=== PATIENT | female | born 1990 | race Caucasian/White ===

== ENCOUNTER → 2024-05-31 11:55 | Outpatient (CLI) | payer OTHER, SELFPAY ==
[2024-05-31 13:11] LABS: Add Manual Diff / Slide Review NO; Basophils Absolute Auto 100 /uL (0-100); Basophils Percent Auto 0.6 % (0-2); Eosinophils Absolute Auto 300 /uL (0-450); Eosinophils Percent Auto 3.8 % (2-4); Hematocrit 39.8 % (36-46); Hemoglobin 13.3 g/dL (12.0-16.0); Lymphocytes Absolute Auto 2200 /uL (1100-4500); Lymphocytes Percent Auto 24.4 % (25-40); Mean Corpuscular HGB Conc 33.5 % (30-36); Mean Corpuscular Hemoglobin 29.5 PG (26-34); Mean Corpuscular Volume 88.2 fL (80-100); Monocytes Absolute Auto 500 /uL (0-900); Monocytes Percent Auto 6.1 % (3-14); Neutrophils Absolute Auto 5800 /uL (1500-7000); Neutrophils Percent Auto 65.1 % (50-75); Platelet Count 295 X10^3/uL (150-400); Red Blood Cell Count 4.51 X10^6/uL (4.0-5.2); Red Cell Distribution Width 13.5 % (11.6-14.8); White Blood Cell Count 8.9 X10^3/uL (4.5-11.0)
[2024-05-31 17:15] LABS: Appearance Urine UA CLEAR; Bilirubin Urine UA NEGATIVE (NEGATIVE); Color Urine UA YELLOW; Glucose Urine UA 3+ g/dL (Negative); Ketones Urine UA NEGATIVE (NEGATIVE); Leukocyte Esterase Urine UA NEGATIVE (NEGATIVE); Nitrite Urine UA NEGATIVE (Negative); Occult Blood Urine UA NEGATIVE (Negative); Protein Urine UA NEGATIVE (Negative); Urobilinogen Urine UA 0.2 E.U./dL (0.2)
[2024-06-02 05:13] LABS: RPR Screen Non Reactive (Non Reactive)
[2024-06-02 13:39] LABS: Varicella IgG Antibody Reactive (Non Reactive)
[2024-06-02 15:34] LABS: Hepatitis B Surface Antigen NEGATIVE s/c (NEGATIVE); Rubella Antibody IgG 11.2 IU/mL (>15)
[2024-06-02 15:49] LABS: HIV 1 & 2 Ab/Ag 4th Gen Combo NEGATIVE (NEGATIVE); Hep C Virus Ab w/Reflex Quant NEGATIVE s/c (NEGATIVE)
[2024-06-02 16:37] LABS: Hemoglobin A1C% w Est Avg Glu 4.9 % (4.0-6.0)
== END ==
PROVIDERS: Referring Provider Student in an Organized Health Care Education/Training Program; Visit Provider Student in an Organized Health Care Education/Training Program
DX: Z34.80 Encounter for supervision of other normal pregnancy, unspecified trimester (principal)
CPT/HCPCS: 80055; 81003; 83036; 86787; 86803; 86850; 86900; 86901; 87086; 87389

== ENCOUNTER → 2024-09-20 10:57 | Outpatient (CLI) | payer OTHER, SELFPAY | PROVIDERS: Visit Provider Student in an Organized Health Care Education/Training Program | DX: N89.8 Other specified noninflammatory disorders of vagina (principal) | CPT/HCPCS: 87210 ==

== ENCOUNTER → 2024-09-20 11:22 | Outpatient (CLI) | payer OTHER, SELFPAY ==
[2024-09-20 12:41] LABS: Hematocrit 37.4 % (36-46); Hemoglobin 12.9 g/dL (12.0-16.0)
[2024-09-20 13:12] LABS: GTT (PREG) 1 Hour PP 50gm Dose 119 mg/dL (76-139)
== END ==
PROVIDERS: PCP Student in an Organized Health Care Education/Training Program; Referring Provider Student in an Organized Health Care Education/Training Program; Visit Provider Student in an Organized Health Care Education/Training Program
DX: O99.891 Other specified diseases and conditions complicating pregnancy (principal); N89.8 Other specified noninflammatory disorders of vagina; Z3A.24 24 weeks gestation of pregnancy
CPT/HCPCS: 36415; 82950; 85014; 85018; 87210

== ENCOUNTER → 2024-11-08 08:31 | Outpatient (CLI) | payer OTHER, SELFPAY ==
--- NOTE | 2024-11-08 08:33 | DI.US.S_ITS ---
PROCEDURE: US OB LIMITED INDICATIONS: Growth Scan for Advanced Materal Age OUTSIDE/PRIOR DATING DATA: Provided working FIDELIA 12/30/2024 TECHNIQUE: Real-time scanning was performed of the fetus, with image documentation and biometric measurements. COMPARISON: None. FINDINGS: General: A single living intrauterine gestation is present. Presentation: Vertex. Placenta: Placental position is anterior , without previa. Amniotic fluid index: 17.6 cm, normal range is 5-24 cm. Single deepest vertical pocket is 7.2 cm. heart rate: 155 beats per minute. Maternal cervical canal: 5.2 cm long. Normal lower limit is 2.5 cm. biometrics: Biparietal diameter: 8.5 cm, 34 weeks and 3 days Head circumference: 31.2 cm, 35 weeks Abdominal circumference: 31.6 cm, 35 weeks and 3 days Femur length: 6.4 cm, 32 weeks and 6 days Clinically estimated gestational age: 32 weeks and 4 days Composite gestational age from present scan: 34 weeks and 3 days Estimated weight and percentile: 2472 g, 94% Other: Not applicable. IMPRESSION: Using the provided working FIDELIA, the EFW is at the 94 percentile, larger than expected. Consider continued follow-up for growth. QUENTIN within normal limits. Vertex presentation. Dictated by: Nicholas Rust M.D. on 11/08/2024 at 15:42 Approved by: Nicholas Rust M.D. on 11/08/2024 at 15:44
== END ==
PROVIDERS: PCP Student in an Organized Health Care Education/Training Program; Referring Provider Student in an Organized Health Care Education/Training Program; Visit Provider Student in an Organized Health Care Education/Training Program
DX: O09.529 Supervision of elderly multigravida, unspecified trimester (principal); O36.63X0 Maternal care for excessive fetal growth, third trimester, not applicable or unspecified; Z3A.32 32 weeks gestation of pregnancy
CPT/HCPCS: 76815

== ENCOUNTER → 2024-11-29 10:57 | Outpatient (CLI) | payer OTHER, SELFPAY ==
[2024-11-30 10:19] LABS: Strep Grp B PCR NEG for Grp B Strep
== END ==
PROVIDERS: Visit Provider Family Medicine
DX: Z34.80 Encounter for supervision of other normal pregnancy, unspecified trimester (principal); N76.0 Acute vaginitis; B96.89 Other specified bacterial agents as the cause of diseases classified elsewhere
CPT/HCPCS: 87210; 87653

== ENCOUNTER → 2024-12-06 09:43 | Outpatient (CLI) | payer OTHER, SELFPAY ==
--- NOTE | 2024-12-06 09:46 | DI.US.S_ITS ---
PROCEDURE: US OB LIMITED INDICATIONS: LGA The calculations are made using the working FIDELIA of 12/30/2024. TECHNIQUE: Real-time scanning was performed of the fetus, with image documentation and biometric measurements. Endovaginal scanning: No COMPARISON: formerly [facility], OB LIMITED, 11/08/2024, 8:52. FINDINGS: General: A single living intrauterine gestation is present. Presentation: Vertex. Placenta: Placental position is anterior , without previa. Amniotic fluid index: 18.1 cm, normal range is 5-24 cm. Single deepest vertical pocket is 5.9 cm. heart rate: 150 beats per minute. Maternal cervical canal: Nonvisualized biometrics: Biparietal diameter: 9.2 cm, 37 week 2 day Head circumference: 33.8 cm, 38 week 6 day Abdominal circumference: 34.1 cm, 38 week 0 day Femur length: 7.5 cm, 38 week 4 day Clinically estimated gestational age: 36 week 4 day Composite gestational age from present scan: 38 week 1 day Estimated weight and percentile: 3411 g, 90 percentile Other: Not applicable. IMPRESSION: Single live intrauterine consistent with 38 week 1 day gestation. EGA 3411 g, 90 percentile Approved by: Jose Valenzuela M.D. on 12/06/2024 at 17:28
== END ==
LOC: US 09:45
PROVIDERS: Referring Provider Student in an Organized Health Care Education/Training Program; Visit Provider Student in an Organized Health Care Education/Training Program
DX: O36.63X0 Maternal care for excessive fetal growth, third trimester, not applicable or unspecified (principal); Z3A.38 38 weeks gestation of pregnancy
CPT/HCPCS: 76815

== ENCOUNTER 2024-12-06 11:37 | Outpatient (CLI) | payer OTHER, SELFPAY ==
--- NOTE | 2024-12-06 12:29 | PM.OBTRLD ---
Visit Information Visit Information Date of evaluation: 12/06/24 Primary OB Provider: Colette Early Reason for Evaluation: Yes non-stress test non-stress test reason: other (AMA) [facility] Medical History (Updated 09/20/24 @ 12:47 by Colette Early MD) Post term Foot fracture Surgical History (Updated 05/03/24 @ 10:05 by Suzy Mtz, RN) [place] teeth extracted Family History (Updated 05/03/24 @ 10:37 by Suzy Mtz, RN) Mother Diabetes mellitus Hyperlipidemia Aunt Diabetes mellitus Grandmother Cancer Grandmother Lyme disease Father Hyperlipidemia Uncle Congenital heart defect Aunt Congenital blindness Developmental disability Family/Other Autism Family/Other Brain cancer Family/Other Congenital deafness Cochlear implant in place Social History marital status: number of children: 3 household members: spouse and children lives independently: Yes caregiver/support person: Yes housing: house pets and animals: No education level: college (bachelor's degree) occupational status: unemployed current occupational exposures/hazards: No special nilson needs: No travel history: recent (domestic only) seatbelt use: always water heater temp set < 120 deg: Yes working smoke detector in home: Yes fire extinguisher in home: No carbon monox detector in home: Yes firearms in home: Yes firearms unloaded and locked: Yes do you feel safe at home: Yes second hand exposure: No alcohol intake: never substance use type: does not use during the past year weight has: decreased > 10 lbs (intentional) well-balanced diet: daily or most days daily servings fruits/ve or more times/day caffeine: Yes (occasional soft drink) Type(s) of exercise: walking and resistance training frequency: 3-4 times per week duration: 15-30 minutes/day Evaluation Evaluation Baseline heart rate: 145 Variability: Moderate (6-25) monitor accelerations: Present Monitor Decelerations: Absent Diagnosis, Plan/Disposition Plan/Disposition Plan: 34yo at 36w4d here for NST for AMA. NST reactive. OB Disposition: home
== END 2024-12-06 12:43 | disposition home or self-care (01) ==
LOC: LABOR 11:46 → OB 14:58
PROVIDERS: Referring Provider Student in an Organized Health Care Education/Training Program; Visit Provider Student in an Organized Health Care Education/Training Program
DX: O36.63X0 Maternal care for excessive fetal growth, third trimester, not applicable or unspecified (principal); O09.529 Supervision of elderly multigravida, unspecified trimester; Z3A.38 38 weeks gestation of pregnancy
CPT/HCPCS: 59025; 76815; G0378; G0379

== ENCOUNTER 2024-12-13 11:51 | Outpatient (CLI) | payer OTHER, SELFPAY | END 2024-12-13 12:25 | disposition home or self-care (01) | LOC: OB 12-14 10:48 | PROVIDERS: Referring Provider Student in an Organized Health Care Education/Training Program; Visit Provider Student in an Organized Health Care Education/Training Program | DX: O09.523 Supervision of elderly multigravida, third trimester (principal); Z3A.37 37 weeks gestation of pregnancy | CPT/HCPCS: 59025; G0378; G0379 ==

== ENCOUNTER 2024-12-20 11:18 | Outpatient (CLI) | payer OTHER, SELFPAY ==
--- NOTE | 2024-12-20 11:49 | P.TNLD_ITS ---
Visit Information Visit Information Date of evaluation: 12/20/24 Primary OB Provider: Colette Early Reason for Evaluation: Yes non-stress test Comments/Additional reasons for admission: AMA NST [facility] Medical History (Updated 09/20/24 @ 12:47 by Colette Early MD) Post term Foot fracture Surgical History (Updated 05/03/24 @ 10:05 by Suzy Mtz, RN) [place] teeth extracted Family History (Updated 05/03/24 @ 10:37 by Suzy Mtz, RN) Mother Diabetes mellitus Hyperlipidemia Aunt Diabetes mellitus Grandmother Cancer Grandmother Lyme disease Father Hyperlipidemia Uncle Congenital heart defect Aunt Congenital blindness Developmental disability Family/Other Autism Family/Other Brain cancer Family/Other Congenital deafness Cochlear implant in place Social History marital status: number of children: 3 household members: spouse and children lives independently: Yes caregiver/support person: Yes housing: house pets and animals: No education level: college (bachelor's degree) occupational status: unemployed current occupational exposures/hazards: No special nilson needs: No travel history: recent (domestic only) seatbelt use: always water heater temp set < 120 deg: Yes working smoke detector in home: Yes fire extinguisher in home: No carbon monox detector in home: Yes firearms in home: Yes firearms unloaded and locked: Yes do you feel safe at home: Yes second hand exposure: No alcohol intake: never substance use type: does not use during the past year weight has: decreased > 10 lbs (intentional) well-balanced diet: daily or most days daily servings fruits/ve or more times/day caffeine: Yes (occasional soft drink) Type(s) of exercise: walking and resistance training frequency: 3-4 times per week duration: 15-30 minutes/day Evaluation Evaluation Baseline heart rate: 145 Variability: Moderate (6-25) monitor accelerations: Present Monitor Decelerations: Absent Category of Tracing: Reactive Status: Category l Diagnosis, Plan/Disposition Plan/Disposition Plan: 34 yo at 38w4d here for NST for AMA. Reactive. IOL Saturday 12/23. OB Disposition: home
== END 2024-12-20 11:55 | disposition home or self-care (01) ==
LOC: LABOR 11:36 → OB 12-21 17:28
PROVIDERS: PCP Student in an Organized Health Care Education/Training Program; Referring Provider Student in an Organized Health Care Education/Training Program; Visit Provider Student in an Organized Health Care Education/Training Program
DX: O09.523 Supervision of elderly multigravida, third trimester (principal); Z3A.38 38 weeks gestation of pregnancy
CPT/HCPCS: 59025; G0378; G0379

== ENCOUNTER 2024-12-23 07:24 | Inpatient (IN) | payer OTHER, SELFPAY ==
--- NOTE | 2024-12-23 08:50 | PM.OBHP.IH.1 ---
OB HPI Date/Time Date of admission: 12/23/24 Date Patient Seen: 12/23/24 History of Present Condition Chief complaint: INDUCING FIDELIA Calculator Estimated Delivery Date Method Current WG Current Estimate 12/30/24 LMP (Certain) 39w 0d Other Estimates 01/02/25 Ultrasound #1 38w 4d : 4 Para: 3 Narrative: This is a 34 yo at 39w0d here for IOL for AMA. complicated by depression well controlled on sertraline. Some bloody show this AM, mild cramping overnight. Good movement. care: good care Dating criteria OB: LMP confirmed by 1st trimester US Ultrasounds: normal 1st trimester US and normal mid trimester US Obstetrical complications: none Medical complications OB: none Indications Indication for induction OB: other (AMA) Preadmission Labs Last OB Lab Results: Blood Type O Positive 05/31/24, 12:34 Antibody Screen Negative 05/31/24, 12:34 Hct, (36-46) 37.4 % 09/20/24, 12:34 Hgb, (12.0-16.0) 12.9 g/dL 09/20/24, 12:34 Hep Bs Antigen, (NEGATIVE) Negative s/c 05/31/24, 12:34 Hepatitis C Antibody, (NEGATIVE) Negative s/c 05/31/24, 12:34 Rubella Antibody, (>15) 11.2 IU/mL L 05/31/24, 12:34 VZV IgG Antibody, (Non Reactive) Reactive 05/31/24, 12:34 Glucose 1 Hr 50 gm, (76-139) 119 mg/dL 09/20/24, 12:34 Hemoglobin A1c, (4.0-6.0) 4.9 % 06/02/24, 16:19 Group B Strep (PCR) Neg for grp b strep 11/29/24, 10:57 Glucose Tolerance Testin hr Prior (ies) Past Pregnancies Del. Date GA/Weeks Labor Lgth Wt Sex Route Outcome Anesthesia Place Delv Breastfeed Preg Comp Name 10/04/16 42+ 48 9 lb 6 oz Male vaginal live - full term epidural Alex Carranza 5 months (mostly pumping) macrosomia post-dates induction shoulder dystocia hemorrhage Jaxcen 04/08/19 39 16 8 lb 14 oz Male vaginal live - full term epidural [facility] 11 months macrosomia Wilbur 10/28/21 39 8 9 lb 2 oz Male vaginal live - full term epidural [facility] 10-11 months macrosomia Stef Delivery Date: 10/04/16 Last Updated by: Suzy Mtz RN placenta deteriorated, manual extraction in several pieces Delivery Date: 04/08/19 Last Updated by: Suzy Mtz RN rapid 2nd stage Delivery Date: 10/28/21 Last Updated by: Suzy Mtz RN rapid 2nd stage, facial bruising, needed readmission for jaundice Evaluation Evaluation Baseline heart rate: 145 Variability: Moderate (6-25) monitor accelerations: Present Monitor Decelerations: Absent Category of Tracing: Reactive Status: Category l Dilation (cm): 2 Effacement (%): 50 Dilation: 1-2 cm Effacement: 40-50% station: -3 Position of cervix: posterior Consistency: soft Santamaria score: 4 PFSH Medical History (Updated 09/20/24 @ 12:47 by Colette Early MD) Post term Foot fracture Surgical History (Updated 05/03/24 @ 10:05 by Suzy Mtz RN) [place] teeth extracted Family History (Updated 05/03/24 @ 10:37 by Suzy Mtz RN) Mother Diabetes mellitus Hyperlipidemia Aunt Diabetes mellitus Grandmother Cancer Grandmother Lyme disease Father Hyperlipidemia Uncle Congenital heart defect Aunt Congenital blindness Developmental disability Family/Other Autism Family/Other Brain cancer Family/Other Congenital deafness Cochlear implant in place Social History marital status: number of children: 3 household members: spouse and children lives independently: Yes caregiver/support person: Yes housing: house pets and animals: No education level: college (bachelor's degree) occupational status: unemployed current occupational exposures/hazards: No special nilson needs: No travel history: recent (domestic only) seatbelt use: always water heater temp set < 120 deg: Yes working smoke detector in home: Yes fire extinguisher in home: No carbon monox detector in home: Yes firearms in home: Yes firearms unloaded and locked: Yes do you feel safe at home: Yes second hand exposure: No alcohol intake: never substance use type: does not use during the past year weight has: decreased > 10 lbs (intentional) well-balanced diet: daily or most days daily servings fruits/ve or more times/day caffeine: Yes (occasional soft drink) Type(s) of exercise: walking and resistance training frequency: 3-4 times per week duration: 15-30 minutes/day Meds Home Medications and Allergies Home Medications ?Medication ?Instructions ?Recorded ?Confirmed ?Type cetirizine 10 mg tablet (All Day 10 mg PO DAILY PRN 05/03/24 12/20/24 History Allergy (cetirizine)) sertraline 200 mg capsule 200 mg PO DAILY #90 caps 10/03/24 12/20/24 Rx buspirone 5 mg tablet 5 mg PO TID 10/11/24 12/20/24 History ondansetron 4 mg disintegrating 4 mg PO Q8H PRN nausea and 10/11/24 12/20/24 Rx tablet vomiting #30 tabs vitamin-ferrous sulfate tab PO .QD 10/11/24 12/20/24 History 27 mg iron-folic acid 0.8 mg tablet Allergies Allergy/AdvReac Type Severity Reaction Status Date / Time No Known Drug Allergies Allergy Verified 12/20/24 10:46 Assessment and Plan Assessment and Plan Assessment and Plan narrative: 34 yo at 39w0d here for IOL for AMA. 50/-3. -will start pitocin -plan for epidural -anticipate SVE Time-Based Coding :: 30 minutes spent with patient and on the chart (including review of chart, obtaining history, exam, reviewing outside data, placing orders, documenting exam and treatment plan, and counseling patient) on 12/23/2024.
[2024-12-23] MEDS: LACTATED RINGERS 1,000 ML 100 ML IV (09:15)
[2024-12-23] MEDS: OXYTOCIN PREMIX 30 UNIT/500 ML PLAST..BAG IV (09:29)
[2024-12-23 09:32] LABS: Add Manual Diff / Slide Review NO; Hematocrit 35.1 % (36-46); Hemoglobin 12.1 g/dL (12.0-16.0); Lymphocytes Absolute Auto 1700 /uL (1100-4500); Mean Corpuscular HGB Conc 34.6 % (30-36); Mean Corpuscular Hemoglobin 28.3 PG (26-34); Mean Corpuscular Volume 82.0 fL (80-100); Platelet Count 284 X10^3/uL (150-400)
[2024-12-23 09:44] VITALS: BP 119/66
--- NOTE | 2024-12-23 13:21 | PM.OBPNLAB ---
Date/Time Date Patient Seen: 12/23/24 Pain Control Pain control: epidural Pelvic Exam Dilation (cm): 5.5 Effacement (%): 50 station: -3 Amniotic membrane status: Intact Contractions Contractions on admission: regular Monitor mode: External Pitocin rate (mU/min): 4 Contraction frequency (min): 4 Contraction pattern: Regular Contraction intensity: Strong/Firm Status status: Category l Heart Rate Baseline: 145 Monitor Accelerations: Present Monitor Decelerations: Absent Monitor Variability: Moderate Assessment and Plan Assessment: induction ongoing Plan: continuous present management
--- NOTE | 2024-12-23 14:17 | PM.AN.REGBLK ---
Regional Block Pre-procedure Procedure: Continuous Lumbar Epidural for L&D (with dural puncture) Attending OB provider: Colette Early PMH/ROS narrative: 34yo female in labor requesting epidural. See pre-anesthesia evaluation for further details. ASA Class: II Labs: Hct 35.1 % (36-46) L 12/23/24 09:01 Plt Count 284 X10^3/uL (150-400) 12/23/24 09:01 Medications: Current Medications Generic Name Dose Route Start Last Admin Trade Name Freq PRN Reason Stop Dose Admin Calcium Carbonate 1,000 mg 12/23/24 08:02 Calcium Carbonate 500 Mg Tab PO Q2HR PRN Dyspepsia Carboprost Tromethamine 250 mcg 12/23/24 08:02 Carboprost 250 Mcg/Ml Ampul IM Q90M PRN Bleeding Diphenhydramine HCl 25 mg 12/23/24 14:15 Diphenhydramine 50 Mg/Ml Vial IV Q10M PRN Pruritis Ephedrine Sulfate 10 mg 12/23/24 14:15 Ephedrine 50 Mg/Ml Vial IV Q5M PRN Blood pressure decrease more than 20% of baseline. Fentanyl 50 mcg 12/23/24 08:02 Fentanyl 100 Mcg/2 Ml Inj IV Q1H PRN Pain, Moderate (4-6) Oxytocin/Lactated Ringer's 30 unit in 500 mls @ 200 mls/hr 12/23/24 08:02 Oxytocin Premix IV CONT PRN Bleeding Protocol Tranexamic Acid 1,000 mg/ 100 mls @ 600 mls/hr 12/23/24 08:02 Sodium Chloride IV NOW PRN Bleeding Oxytocin/Lactated Ringer's 30 unit in 500 mls @ 2 mls/hr 12/23/24 08:15 12/23/24 09:29 Oxytocin Premix IV 2 milliunit/min TITRATE ANAM 2 mls/hr Protocol Administration 2 MILLIUNIT/MIN Lactated Ringer's 1,000 mls @ 100 mls/hr 12/23/24 08:15 12/23/24 09:15 Lactated Ringers IV 12/23/24 18:14 100 mls/hr CONT ANAM Administration FENT 2MCG/ML BUPIV 0.125% EPI 200 mcg in 100 mls @ 6 mls/hr 12/23/24 14:15 Fentanyl/Bupiv/Ns 2mcg/Ml - 0.125% EPIDURAL CONT ANAM Lidocaine HCl 20 ml 12/23/24 08:02 Lidocaine 1% 20 Ml INJ INTRA-OP PRN Post Delivery Methylergonovine Maleate 0.2 mg 12/23/24 08:02 Methylergonovine 0.2 Mg Tablet PO Q6HR PRN Heavy Bleeding Methylergonovine Maleate 0.2 mg 12/23/24 08:02 Methylergonovine 0.2 Mg/Ml Vial IM NOW PRN Bleeding Mineral Oil 30 ml 12/23/24 08:02 Mineral Oil 30 Ml Udc TOP PRN PRN Version Misoprostol 800 mcg 12/23/24 08:02 Misoprostol 200 Mcg Tablet AR NOW PRN Bleeding Misoprostol 400 mcg 12/23/24 08:02 Misoprostol 200 Mcg Tablet SL NOW PRN Bleeding Nalbuphine HCl 2.5 mg 12/23/24 14:15 Nalbuphine 20 Mg/Ml Ampul IV Q10M PRN Pruritis Naloxone HCl 0.2 mg 12/23/24 08:02 Naloxone 0.4 Mg/Ml Vial IV Q2MIN PRN Opiate Reversal Ondansetron HCl 4 mg 12/23/24 08:02 Ondansetron 4 Mg/2 Ml Inj IV Q4HR PRN Nausea And Vomiting Oxytocin 10 unit 12/23/24 08:02 Oxytocin 10 Unit/Ml Vial IM NOW PRN Bleeding Allergies: Allergies Allergy/AdvReac Type Severity Reaction Status Date / Time No Known Drug Allergies Allergy Verified 12/20/24 10:46 Procedure Insertion date: 12/23/24 Insertion time: 12:37 Prep/Local: 1% lidocaine (Chloraprep) Interspace: L3-4 Patient position: sitting Needle: 18 gauge Brissa (with 27g pencil point for dural puncture) Loss of resistance with: saline CARRILLO at (cm): 9 (8.5) Catheter placed at SKIN (cm): 14 Catheter in SPACE (cm): 6 Insertion: Yes Paresthesia with insertion Initial Medications TEST DOSE time: 12:37 TEST DOSE: 1.5% lidocaine with epinephrine 1:200k (mL): 3 BOLUS DOSE time: 12:38 BOLUS DOSE (mL): 2 BOLUS DOSE med: other (Same as test dose) Infusion INFUSION: 0.125% bupivacaine and with fentanyl 2 mcg/mL Initial rate (mL/hr): 8 Subsequent interventions: Epidural pump started at 12:55. Pt reports contraction pain 1-2/10, able to move BLE. Post-procedure Anesthesia date START: 12/23/24 Anesthesia time START: 12:22 Anesthesia date END: 12/23/24 Anesthesia time END: 16:56 Post-procedure Anesthesia Assessment: Yes CV function: HR/BP stable, Yes Resp function: RR/sat/airway adequate, Yes Post-op hydration adequate, Yes Pain control adequate, Yes Nausea & vomiting absent, Yes Temperature > 36 C, Yes Mental status appropriate and No Anesthesia complications
--- NOTE | 2024-12-23 17:36 | PM.OBPRVD ---
Events: Meconium Stained Fluid Labor & Delivery Delivery date: 12/23/24 Delivery Time: 16:56 Intrapartal Events: None Cervical ripening method: none Induction method: per pitocin protocol Delivery augmentation: rupture of membranes Delivery monitor: external FHT Route of delivery: L&D Laceration Description: None Estimated blood loss (mL): 500 Anesthesia Type: Epidural Narrative: The patient progressed to C/C/+2 with pitocin augmentation and epidural anesthesia. After approximately 1 sets of maternal pushing efforts, the delivered in OA position and restituted KISHORE. The anterior shoulder delivered with gentle downward pressure. The right hand was covering the right cheek. The posterior shoulder and rest of body delivered with ease. The cord was doubly clamped and cut after a 3 minute delay. The placenta delivered spontaneously and was intact with a 3-vessel cord. The fundus was noted to be firm with bimanual massage and pitocin. Rectal misoprostol 800 mcg was given for blood loss of 500 cc. There were no lacerations. Mom recovering well. Plan for aftercare: Routine care
[2024-12-23] MEDS: ACETAMINOPHEN 325 MG TABLET 650 MG PO (19:55)
[2024-12-23] MEDS: IBUPROFEN 600 MG TABLET PO (19:55)
[2024-12-23] MEDS: DERMOPLAST SPRAY 20% 60 ML 1 SPRAY TOP (19:57)
[2024-12-23] MEDS: OXYCODONE IR 5 MG TABLET PO (22:41)
[2024-12-24] MEDS: ACETAMINOPHEN 325 MG TABLET 650 MG PO ×3 (02:01→14:32)
[2024-12-24] MEDS: IBUPROFEN 600 MG TABLET PO ×3 (02:01→14:32)
[2024-12-24] MEDS: OXYCODONE IR 5 MG TABLET PO ×4 (05:28→18:19)
--- NOTE | 2024-12-24 08:19 | PM.OBDS.1 ---
Discharge Providers Provider Date of admission: 12/23/24 07:24 Discharge Date: 12/24/24 Primary care physician: Colette Early MD Consults: 12/23/24 08:03 Consult to Anesthesiology Urgent Comment: Consulting Provider: Anesthesiologist Reason for consultation: Epidural 12/23/24 18:27 Consult to Special Procedure Technologist Routine Comment: Discharge provider: Colette Early MD Summary Hospital Course Date Patient Seen: 12/24/24 Diagnoses: Term vaginal delivery Hospital Course: This is a 34 yo G4 now P4 who presented at 39w0d for IOL for AMA. She had an uncomplicated vaginal delivery following pitocin and AROM augmentation. She had epidural anesthesia. She recovered well . She is without difficulty. She is ambulating well. She has voided. Peripartum Data Laceration Description: None complications: none Status at Discharge Cognitive/behavioral status at discharge: oriented Functional status at discharge: independent ambulation Overall status at discharge: patient is back to baseline Time Spent with Patient Time attestation: Total time spent providing and/or coordinating discharge services: 30 minutes Objective Labs 12/23/24 09:01 Labs: Laboratory Results - last 24 hr 12/23/24 09:01 WBC 8.5 RBC 4.29 Hgb 12.1 Hct 35.1 L MCV 82.0 MCH 28.3 MCHC 34.6 RDW 13.5 Plt Count 284 Neut % (Auto) 70.2 Lymph % (Auto) 20.[address] [place] % (Auto) 6.9 Eos % (Auto) 2.3 Baso % (Auto) 0.4 Neut # (Auto) 6000 Lymph # (Auto) 1700 [place] # (Auto) 600 Eos # (Auto) 200 Baso # (Auto) 0 Blood Type O Positive Antibody Screen Negative Crossmatch See Detail Exam Narrative Exam Narrative: NAD, resting comfortably in bed Discharge Plan Discharge Plan Patient Disposition: Home Discharge orders & Medications Prescriptions: New oxycodone 5 mg Tablet 5 mg PO Q4HR PRN (Reason: Pain, Moderate (4-6)) Qty: 15 0RF docusate sodium [Colace] 100 mg capsule 100 mg PO BID Qty: 60 0RF docusate sodium [Colace] 100 mg capsule 100 mg PO BID Qty: 60 0RF Continued buspirone 5 mg tablet 5 mg PO TID Patient Comments: Taking QD-BID ondansetron 4 mg tablet,disintegrating 4 mg PO Q8H PRN (Reason: nausea and vomiting) Qty: 30 3RF sertraline 200 mg capsule 200 mg PO DAILY Qty: 90 0RF cetirizine [All Day Allergy (cetirizine)] 10 mg tablet 10 mg PO DAILY PRN vit-ferrous sulfat-FA 27 mg iron- 0.8 mg tablet PO .QD Follow up/Referrals: Colette Early MD [Primary Care Provider, [facility]] - 02/03/25 3:30 pm Referral Note: Please follow up w/ Dr. Early for your 6 week appointment on Monday February 03, 2025 @3:30pm. Please check in at 3:15pm! Visit Report/Discharge Packet Stand Alone Forms: Patient Portal/API, Stroke Signs & Symptoms Discharge Data Primary Care Provider: Colette Early Attending Provider: Colette Early Admit Date/Time: 12/23/24 07:24
[2024-12-24] MEDS: LANOLIN OINT 7 GM 1 APPLIC TOP (14:54)
[2024-12-24] MEDS: DERMOPLAST SPRAY 20% 60 ML 1 SPRAY TOP (14:55)
[2024-12-24] MEDS: MEASLES,MUMPS,RUBELLA VACC/PF 0.5 ML VIAL SUBCUT (15:09)
[2024-12-24 18:22] VITALS: BP 119/66; PULSE 68; RESP 16; TEMP 36.3
== END 2024-12-24 18:22 | disposition home or self-care (01) | DRG 807 ==
PROVIDERS: Admitting Provider Student in an Organized Health Care Education/Training Program; PCP Student in an Organized Health Care Education/Training Program; Referring Provider Student in an Organized Health Care Education/Training Program; Visit Provider Student in an Organized Health Care Education/Training Program
DX: O99.344 Other mental disorders complicating childbirth (principal); Z37.0 Single live birth; Z3A.39 39 weeks gestation of pregnancy; O76 Abnormality in fetal heart rate and rhythm complicating labor and delivery
CPT/HCPCS: 36415; 59050; 59400; 85025; 86850; 86900; 86901; G0378; G0379; J2590; S0191

== ENCOUNTER → 2025-02-17 09:17 | Outpatient (CLI) | payer OTHER, SELFPAY ==
--- NOTE | 2025-02-17 09:18 | DI.RAD.S_ITS ---
PROCEDURE: XR WRIST RT 2V INDICATIONS: Wrist pain TECHNIQUE: 4 views of the wrist were acquired. COMPARISON: None. FINDINGS: Bones: No fractures or dislocations. No suspicious bony lesions. Soft tissues: No suspicious soft tissue calcifications. IMPRESSION: No acute bony abnormality. Dictated by: Sai Trimble M.D. on 02/20/2025 at 6:24 Approved by: Sai Trimble M.D. on 02/20/2025 at 6:24
--- NOTE | 2025-02-17 09:18 | DI.RAD.S_ITS ---
PROCEDURE: XR LUMBAR SPINE 2-3V INDICATIONS: back pain TECHNIQUE: 3 views of the lumbar spine were acquired. COMPARISON: None. FINDINGS: Bones: 5 [id number] vertebrae are present. There is normal bony alignment. Moderate L5-S1 disc height loss with adjacent endplate sclerosis and minimal anterior osteophytosis. No vertebral body compression fractures. No suspicious bony lesions. Soft tissues: Overlying bowel gas pattern is normal. No suspicious soft tissue calcifications. IMPRESSION: Degenerative change at the L5-S1 level without evidence of acute bony abnormality. Dictated by: Sai Trimble M.D. on 02/20/2025 at 6:23 Approved by: Sai Trimble M.D. on 02/20/2025 at 6:24
== END ==
LOC: RAD 09:17
PROVIDERS: PCP Student in an Organized Health Care Education/Training Program; Referring Provider Family Medicine; Visit Provider Family Medicine
DX: M65.4 Radial styloid tenosynovitis [de Quervain] (principal); M25.531 Pain in right wrist; M47.817 Spondylosis without myelopathy or radiculopathy, lumbosacral region; M54.9 Dorsalgia, unspecified
CPT/HCPCS: 72100; 73100

== ENCOUNTER → 2025-03-04 13:14 | Outpatient (CLI) | payer OTHER, SELFPAY ==
--- NOTE | 2025-03-04 13:17 | DI.MRI.S_ITS ---
PROCEDURE: MR LUMBAR SPINE WO CON INDICATIONS: Degenerative finding on Xray TECHNIQUE: Noncontrast sagittal T1 spin echo and T2 fast echo, sagittal STIR, and T2 fast spin echo through the lumbar spine. In cases with scoliosis, additional coronal T2 fast spin echo may be performed. COMPARISON: [facility], , XR LUMBAR SPINE 2-3V, 02/17/2025, 9:14. FINDINGS: Image quality: Excellent. Alignment and Curvature: Very minimal retrolisthesis L5-S1. Otherwise normal bone alignment. Bone Marrow: Mild type 2 Modic changes in the endplates at the L5-S1 level. Marrow is otherwise of normal overall signal. No acute vertebral body compression fractures. Spinal Cord: Conus medullaris terminates at the L1 level. Visualized cord demonstrates normal signal and size. Paraspinous Soft Tissues: No paravertebral masses. T12-L1: Normal appearance. L1-L2: Normal appearance. L2-L3: Normal appearance. L3-L4: Minor diffuse circumferential disc bulge. Very small broad-based central disc protrusion. Mild facet arthropathy. No foraminal or central canal stenosis. L4-L5: Mild disc desiccation and minor broad-based posterior disc bulge. Minimal posterior annular tear. No foraminal or central canal stenosis. L5-S1: Mild disc desiccation and mild diffuse disc height loss. Mild, broad- based posterior disc bulge with small right central annular tear but no focal disc herniation. No foraminal or central canal stenosis. IMPRESSION: Early/mild degenerative changes, predominantly at the L5-S1 level, consistent with radiographic appearance. Dictated by: Cristela Fragoso M.D. on 03/06/2025 at 9:22 Approved by: Cristela Fragoso M.D. on 03/06/2025 at 9:31
== END ==
PROVIDERS: Family Provider Student in an Organized Health Care Education/Training Program; PCP Student in an Organized Health Care Education/Training Program; Referring Provider Family Medicine; Visit Provider Family Medicine
DX: M54.41 Lumbago with sciatica, right side (principal); M47.817 Spondylosis without myelopathy or radiculopathy, lumbosacral region
CPT/HCPCS: 72148

== ENCOUNTER 2025-03-29 09:45 | Outpatient (RCR) | payer OTHER, SELFPAY ==
--- NOTE | 2025-03-16 11:11 | OT.OPPOC ---
Physical, Occupational & Speech Therapy At [facility] Martha Stephenson [id number] 1990 Visit Care Team Role Provider Type Colette Early MD Family Provider Physician Primary Care Provider Address: [facility] [place], [address] Eliane Renteria MD Attending Provider Physician Referring Provider Address: [address] [facility] [place], [address] Occupational Therapy Plan of Care OT Outpatient Adult Evaluation Start: 03/16/25 09:27 Freq: Status: Active Protocol: Document 03/16/25 09:45 (Rec: 03/16/25 09:42 [id number]) General Information - Adult Visit Information Visit Number 1 of 12 Plan of Care Dates 03/16/25-06/08/25 Insurance treated like self-pay, so we are to collect 50% payment Information on each appt Session Time Visit Start Date 03/16/25 Visit Start Time 09:45 Visit Stop Time 10:30 Setting Treatment Setting Outpatient Care Visit Type Note Type Initial Evaluation Referral Referring Physician Dr. Eliane Renteria Reason for Referral DeQuervain's tenosynovitis Identification Identification Yes Confirmed Identification EMR Confirmed By Social Information Social History It is definitely improving with the brace but, it is still really hard to do a lot of stuff. Patient Questionnaires Quick Dash- Upper Extremity Quick Dash UE Score 47.7 Quick Dash UE 40 to 59% Impaired (Score 40-59) Impairment Quick Dash- Work and Sports Modules Quick Dash W&S Score 68.75 Quick Dash Work and 60 to 79% Impaired (Score 60-79) Sport Impairment Goals Objective Measurements Objective Finklestien's maneuver (+) Measurements Maintenance And Operations Supervisor Strength (Average of 3 trials): R: Avg 46.7lb ( 45, 40, 55 ); L: Avg 43.3lb ( 40, 45, 45 ) 3-Jaw Barry Pinch (Average of 3 trials): R: Avg 16.3lb (17, 16, 16 ) ? L: Avg 13lb ( 12, 13, 14 ) Lateral Pinch: R: Avg 15lb ( 15, 15, 15 ) ; L: Avg 13lb ( 13, 13, 13 ) Treatment Treatment During today?s session the patient was educated on the role and scope of occupational therapy for management of De Quervain?s Tenosynovitis. Instruction was provided on the therapeutic use of thermal modalities including ice massage for inflammation management. Brace wear schedule was reviewed with emphasis on use during aggravating tasks to minimize stress across the first dorsal compartment. Education was provided on task modification strategies, including use of a pop socket on her phone, voice dictation, and other ergonomic adaptations to reduce repetitive thumb stress . Instruction was given on adaptive approaches for child watch attendant, cooking, and household management to decrease symptom provocation. Kinesiotaping was applied along the thumb for additional support when outside of the brace, with education on its purpose, application principles, and care. Patient verbalized excellent understanding of all strategies and demonstrated good engagement with education. Short Term Goals Short Term Goals (Within 6 weeks): 1. Patient will independently demonstrate correct brace wear schedule and kinesiotape management to support joint protection during daily activities. 2. Patient will report reduction in pain frequency to no more than 2?3 flare ups per day during childcare and household tasks. 3. Patient will identify and implement at least 3 joint protection or activity modification strategies to decrease strain on the right thumb during childcare and meal preparation. 4. Patient will demonstrate independence with a home program of thermal modalities and gentle pain-free exercises for symptom management. Longterm Goals Longterm Goals (Within 12 weeks): 1. Patient will complete childcare tasks including lifting and carrying her infant with pain no greater than 2/10 using adaptive strategies and supports as needed. 2. Patient will demonstrate ability to complete household tasks including cooking and hairstyling with no more than minimal pain interference in daily performance. 3. Patient will achieve improved functional use of the right upper extremity as evidenced by a QuickDASH score reduction of at least 15 points. 4. Patient will demonstrate symmetrical bilateral user experience developer strength within 10% of the uninvolved hand to support return to full occupational engagement. Assessment/Plan Assessment Patient Response Good Rehabilitation Excellent Potential Impairments ADLs,Functional Activities,Pain,Recreational Activities Identified ,Meaningful Activities Progress Towards Good Progress Goals Status Improving Treatment Assessment 35-year-old right-hand dominant female, currently a [id number] mother of four, referred by Dr. Eliane Renteria for right De Quervain?s Tenosynovitis. Symptoms began approximately six months ago with pain at night while sleeping and have progressively worsened with childcare and household tasks. Pain is provoked by lifting, cooking, hairstyling, nursing, and handwriting. Prior to splint use, pain occurred approximately every 10 minutes and reached up to 6?7/10 . Since receiving a prefabricated thumb spica splint 1. 5 weeks ago, symptoms have reduced to 5?6/10 pain approximately 5?6 times daily. Aubrey?s maneuver was positive. QuickDASH scores reflect moderate to severe impairment (47.7 overall, 68.75 for work). Maintenance And Operations Supervisor strength was slightly reduced on the right compared to the left (R: 43.3 lb avg, L: 46.7 lb avg), though pinch strength was preserved or stronger on the right compared to the left (3-jaw barry R: 16.3 lb avg, L: 13 lb avg; lateral pinch R: 15 lb avg, L: 13 lb avg). Clinical presentation is consistent with De Quervain?s Tenosynovitis with functional limitations in childcare, household management, and handwriting. Skilled OT services are indicated to address pain management, joint protection, ergonomics, activity modification, and functional strengthening to restore occupational performance. Reviewed with Goals,Progress Being Made,Home Exercise Program Patient Patient Good Understanding Plan Length of treatment 12 (weeks) Plan of Care Start 03/16/25 Date Plan of Care End 06/08/25 Date Treatment Frequency Once a Week Treatment Duration 45 Minutes Treatment Emphasis initiate HEP Next Session Therapeutic Contents Active Range of Motion,Adaptive Equipment Education, Client Education,Functional Activities,Home Exercise Program,Joint Protection,Education,Orthosis,Self-Care, Stretching/Flexibility Activities,Therapeutic Activities,Therapeutic Exercises,Modalities Modalities As Needed Types of Modalities Ice Massage,Other Additional Types of MHP, paraffin Modalities Patient Instruction Home Exercise Program,Plan of Care,Questions/Concerns Patient Continue with Current Program Recommendations Electronically Signed by: Ebonie Cerna OT 03/16/25 1111 If you are in agreement with this Plan of Care, please return a signed and dated copy. I have reviewed this Plan of Care and certify that the skilled therapy services above are required to meet the patient?s needs. Physician Signature Date Printed Name and Credentials Clinical Instructor Signature Printed Name and Credentials
--- NOTE | 2025-03-29 12:45 | OT.OP.TRT ---
Visit Care Team Role Provider Type Colette Early MD Family Provider Physician Primary Care Provider Specialty: Family Practice Obstetrics Address: [address] [place], [address] Email: [email or web address] Eliane Renteria MD Attending Provider Physician Referring Provider Specialty: Family Practice [facility] Address: [address] [place], [address] Email: [email or web address] Occupational Therapy Treatment Note OT Outpatient Treatment Note - Adult Start: 03/16/25 09:27 Freq: Status: Active Protocol: Document 03/29/25 09:45 (Rec: 03/28/25 12:16 [id number]) OT Outpatient Adult Treatment Note Session Time Visit Start Date 03/29/25 Visit Start Time 09:45 Visit Stop Time 10:30 Visit Information Visit Number 2 of 12 Plan of Care Dates 03/16/25-06/08/25 Insurance treated like self-pay, so we are to collect 50% payment Information at each visit Setting Treatment Setting Outpatient Care Visit Type Note Type Treatment Note - Subjective Identification Type Name Identification Medical Record Reconciled With Observations It is doing ok when I am in my brace, but if its off, it takes very little for it to hurt really bad Patient/Caregiver Good Compliance with Home Exercise Program - Objective Short Term Goals (Within 6 weeks): 1. Patient will independently demonstrate correct brace wear schedule and kinesiotape management to support joint protection during daily activities. 2. Patient will report reduction in pain frequency to no more than 2?3 flare ups per day during childcare and household tasks. 3. Patient will identify and implement at least 3 joint protection or activity modification strategies to decrease strain on the right thumb during childcare and meal preparation. 4. Patient will demonstrate independence with a home program of thermal modalities and gentle pain-free exercises for symptom management. Etl Tester Goals (Within 12 weeks): 1. Patient will complete childcare tasks including lifting and carrying her infant with pain no greater than 2/10 using adaptive strategies and supports as needed. 2. Patient will demonstrate ability to complete household tasks including cooking and hairstyling with no more than minimal pain interference in daily performance. 3. Patient will achieve improved functional use of the right upper extremity as evidenced by a QuickDASH score reduction of at least 15 points. 4. Patient will demonstrate symmetrical bilateral offal icer poultry strength within 10% of the uninvolved hand to support return to full occupational engagement. - Treatment 1 Descriptor The session focused on progressing pain management and gentle functional activation for right De Quervain?s tenosynovitis. Education was reviewed regarding the purpose and sequence of her home exercise program, beginning with gentle self-massage of the webspace, thenar eminence, and proximal forearm to promote tissue relaxation and circulation. Instruction was reinforced on the use of ice massage and ongoing adherence to rest and bracing, which the patient reports excellent compliance with. Phase 1 AAROM exercises were reviewed for thumb adduction, thumb extension, radial abduction, and ulnar deviation, with detailed demonstration and patient return demonstration of one set of five repetitions with maximal verbal and visual cues for form and pacing. Education was also provided on the next progression (phase 2) to begin only if pain-free, including active radial abduction, active thumb extension, thumb opposition to the fifth digit, and gentle forearm supination/pronation AROM. Vibrational desensitization and tissue calming along the first dorsal compartment using tuning fork sequence . The patient reported a positive response with reduction in local tenderness and a subjective sense of relief. Kinesiotape was reapplied along the thumb for support outside of the brace, with education on avoiding prolonged immersion in water to increase tape longevity. The patient verbalized understanding of all education and expressed satisfaction with symptom relief following treatment, good return demo of all exercises. Visual Cues Max Cues Verbal Cues Max Cues Tolerance Excellent - Assessment Patient Response to Good Treatment Rehabilitation Excellent Potential Impairments ADLs,Coordination/Dexterity,Functional Activities,Pain, Identified Weakness,Recreational Activities,Meaningful Activities Progress Towards Good Progress Goals Assessment of Improving Overall Progress Assessment of Patient continues to present with persistent symptoms Improvement of right De Quervain?s tenosynovitis characterized by pain with thumb and wrist motion, particularly during unbraced activity such as childcare and household tasks . While symptoms are well-managed during brace wear, pain remains easily provoked with active thumb use, indicating ongoing inflammation and tendon sheath irritation. The patient demonstrates excellent compliance with bracing and home recommendations but continues to exhibit guarded movement and limited tolerance for functional activity outside the brace. Her response to the tuning fork vibrational therapy and kinesiotaping was positive, suggesting good tissue receptivity and potential benefit from continued multimodal treatment for pain modulation and neurosensory calming. Skilled OT intervention remains indicated to address pain management, tissue extensibility, graded reintroduction of motion and functional activity, and reinforcement of joint protection and adaptive strategies to facilitate safe and sustained participation in childcare and daily living tasks. Continued focus will include monitoring tolerance to early AROM, use of vibrational and manual techniques for inflammation control, and gradual progression toward functional strengthening once pain-free motion is achieved. Home Exercise self-massage of webspace/thenar eminence/proximal Program forearm, use of ice massage. Phase 1 AAROM exercises: thumb adduction, thumb extension, radial abduction, and ulnar deviation, once pain free, pt to progress to ( phase 2): active radial abduction, active thumb extension, thumb opposition to the fifth digit, and forearm supination/pronation AROM. Reviewed with Goals,Progress Being Made,Home Exercise Program Patient/Caregiver Patient/Caregiver Good Understanding - Plan Therapy Continue with Current Program Recommendations Amount of Therapy 2-3 Months Recommended Frequency of Once a Week Treatment Length of Session 45 Minutes Treatment Emphasis review HEP Next Session Therapeutic Contents Active Range of Motion,Adaptive Equipment Education, Client Education,Functional Activities,Home Exercise Program,Joint Protection,Manual Therapy,Education, Neuromuscular Re-Education,Orthosis,Self-Care, Stretching/Flexibility Activities,Therapeutic Activities,Therapeutic Exercises,Modalities Modalities As Needed Types of Modalities Ice Massage,Other Additional Types of MHP, paraffin Modalities
--- NOTE | 2025-04-26 12:53 | OT.OP.DC ---
Visit Care Team Role Provider Type Colette Early MD Family Provider Physician Primary Care Provider Address: [address] [place], [address] Email: [email or web address] Eliane Renteria MD Attending Provider Physician Referring Provider Address: [address] [facility] [place], [address] Email: [email or web address] OT Outpatient OT Outpatient Adult Evaluation Start: 03/16/25 09:27 Freq: Status: Active Protocol: Document 03/16/25 09:45 (Rec: 03/16/25 09:42 [id number]) General Information - Adult Visit Information Visit Number 1 of 12 Plan of Care Dates 03/16/25-06/08/25 Insurance treated like self-pay, so we are to collect 50% payment Information on each appt Session Time Visit Start Date 03/16/25 Visit Start Time 09:45 Visit Stop Time 10:30 Setting Treatment Setting Outpatient Care Visit Type Note Type Initial Evaluation Referral Referring Physician Dr. Eliane Renteria Reason for Referral DeQuervain's tenosynovitis Identification Identification Yes Confirmed Identification EMR Confirmed By Social Information Social History It is definitely improving with the brace but, it is still really hard to do a lot of stuff. Patient Questionnaires Quick Dash- Upper Extremity Quick Dash UE Score 47.7 Quick Dash UE 40 to 59% Impaired (Score 40-59) Impairment Quick Dash- Work and Sports Modules Quick Dash W&S Score 68.75 Quick Dash Work and 60 to 79% Impaired (Score 60-79) Sport Impairment Goals Objective Measurements Objective Finklestien's maneuver (+) Measurements Program Scheduler Strength (Average of 3 trials): R: Avg 46.7lb ( 45, 40, 55 ); L: Avg 43.3lb ( 40, 45, 45 ) 3-Jaw Barry Pinch (Average of 3 trials): R: Avg 16.3lb (17, 16, 16 ) ? L: Avg 13lb ( 12, 13, 14 ) Lateral Pinch: R: Avg 15lb ( 15, 15, 15 ) ; L: Avg 13lb ( 13, 13, 13 ) Treatment Treatment During today?s session the patient was educated on the role and scope of occupational therapy for management of De Quervain?s Tenosynovitis. Instruction was provided on the therapeutic use of thermal modalities including ice massage for inflammation management. Brace wear schedule was reviewed with emphasis on use during aggravating tasks to minimize stress across the first dorsal compartment. Education was provided on task modification strategies, including use of a pop socket on her phone, voice dictation, and other ergonomic adaptations to reduce repetitive thumb stress . Instruction was given on adaptive approaches for child attendant, cooking, and household management to decrease symptom provocation. Kinesiotaping was applied along the thumb for additional support when outside of the brace, with education on its purpose, application principles, and care. Patient verbalized excellent understanding of all strategies and demonstrated good engagement with education. Short Term Goals Short Term Goals (Within 6 weeks): 1. Patient will independently demonstrate correct brace wear schedule and kinesiotape management to support joint protection during daily activities. 2. Patient will report reduction in pain frequency to no more than 2?3 flare ups per day during childcare and household tasks. 3. Patient will identify and implement at least 3 joint protection or activity modification strategies to decrease strain on the right thumb during childcare and meal preparation. 4. Patient will demonstrate independence with a home program of thermal modalities and gentle pain-free exercises for symptom management. Fdc Goals Map Drafter Goals (Within 12 weeks): 1. Patient will complete childcare tasks including lifting and carrying her with pain no greater than 2/10 using adaptive strategies and supports as needed. 2. Patient will demonstrate ability to complete household tasks including cooking and hairstyling with no more than minimal pain interference in daily performance. 3. Patient will achieve improved functional use of the right upper extremity as evidenced by a QuickDASH score reduction of at least 15 points. 4. Patient will demonstrate symmetrical bilateral ultrasound supervisor strength within 10% of the uninvolved hand to support return to full occupational engagement. Assessment/Plan Assessment Patient Response Good Rehabilitation Excellent Potential Impairments ADLs,Functional Activities,Pain,Recreational Activities Identified ,Meaningful Activities Progress Towards Good Progress Goals Status Improving Treatment Assessment 35-year-old right-hand dominant female, currently a [id number] mother of four, referred by Dr. Eliane Renteria for right De Quervain?s Tenosynovitis. Symptoms began approximately six months ago with pain at night while sleeping and have progressively worsened with childcare and household tasks. Pain is provoked by lifting, cooking, hairstyling, nursing, and handwriting. Prior to splint use, pain occurred approximately every 10 minutes and reached up to 6?7/10 . Since receiving a prefabricated thumb spica splint 1. 5 weeks ago, symptoms have reduced to 5?6/10 pain approximately 5?6 times daily. Aubrey?s maneuver was positive. QuickDASH scores reflect moderate to severe impairment (47.7 overall, 68.75 for work). Program Scheduler strength was slightly reduced on the right compared to the left (R: 43.3 lb avg, L: 46.7 lb avg), though pinch strength was preserved or stronger on the right compared to the left (3-jaw barry R: 16.3 lb avg, L: 13 lb avg; lateral pinch R: 15 lb avg, L: 13 lb avg). Clinical presentation is consistent with De Quervain?s Tenosynovitis with functional limitations in childcare, household management, and handwriting. Skilled OT services are indicated to address pain management, joint protection, ergonomics, activity modification, and functional strengthening to restore occupational performance. Reviewed with Goals,Progress Being Made,Home Exercise Program Patient Patient Good Understanding Plan Length of treatment 12 (weeks) Plan of Care Start 03/16/25 Plan of Care End 06/08/25 Date Treatment Frequency Once a Week Treatment Duration 45 Minutes Treatment Emphasis initiate HEP Next Session Therapeutic Contents Active Range of Motion,Adaptive Equipment Education, Client Education,Functional Activities,Home Exercise Program,Joint Protection,Education,Orthosis,Self-Care, Stretching/Flexibility Activities,Therapeutic Activities,Therapeutic Exercises,Modalities Modalities As Needed Types of Modalities Ice Massage,Other Additional Types of MHP, paraffin Modalities Patient Instruction Home Exercise Program,Plan of Care,Questions/Concerns Patient Continue with Current Program Recommendations Functional Wrist/Hand Scan Hand Side Sensory Assessment Sensory Profile2 OT Outpatient Treatment Note - Adult Start: 03/16/25 09:27 Freq: Status: Active Protocol: Document 04/26/25 12:48 (Rec: 04/26/25 12:53 [id number]) OT Outpatient Adult Treatment Note Visit Information Plan of Care Dates 03/16/25-06/08/25 Insurance treated like self-pay, so we are to collect 50% payment Information at each visit Setting Treatment Setting Outpatient Care Visit Type Note Type Discharge Summary General Information General Information Pt has not been seen in 28 days due to self reported financial concerns as she began PT intervention at the same clinic. Will discharge patient at this time however, if symptoms persist, pt is aware a new referral can be requested once able to resume OT - - Objective Short Term Goals (Within 6 weeks): 1. Patient will independently demonstrate correct brace wear schedule and kinesiotape management to support joint protection during daily activities. [NOT MET 06/08] 2. Patient will report reduction in pain frequency to no more than 2?3 flare ups per day during childcare and household tasks. [NOT MET 04/26/25] 3. Patient will identify and implement at least 3 joint protection or activity modification strategies to decrease strain on the right thumb during childcare and meal preparation. [NOT MET 04/26/25] 4. Patient will demonstrate independence with a home program of thermal modalities and gentle pain-free exercises for symptom management. [NOT MET 04/26/25] Map Drafter Goals (Within 12 weeks): 1. Patient will complete childcare tasks including lifting and carrying her infant with pain no greater than 2/10 using adaptive strategies and supports as needed. [NOT MET 04/26/25] 2. Patient will demonstrate ability to complete household tasks including cooking and hairstyling with no more than minimal pain interference in daily performance. [NOT MET 04/26/25] 3. Patient will achieve improved functional use of the right upper extremity as evidenced by a QuickDASH score reduction of at least 15 points. [NOT MET 04/26/25] 4. Patient will demonstrate symmetrical bilateral ultrasound supervisor strength within 10% of the uninvolved hand to support return to full occupational engagement. [NOT MET ] - - Assessment Rehabilitation Excellent Potential Impairments ADLs,Coordination/Dexterity,Functional Activities,Pain, Identified Weakness,Recreational Activities,Meaningful Activities Progress Towards Slow Progress Goals Assessment of Unchanged Overall Progress Assessment of patient was referred to occupational therapy for Improvement management of right De Quervain?s tenosynovitis and was seen for an initial evaluation and one follow-up visit . She has not been seen for the past 28 days, reporting financial constraints and concurrent participation in physical therapy services at the same clinic. Due to the extended lapse in attendance and limited number of visits, the patient is being formally discharged from occupational therapy at this time. During her brief course of care, the patient demonstrated good understanding of education provided regarding activity modification, joint protection, brace wear, and home exercise progression, but made minimal measurable progress toward established goals given the limited duration of skilled intervention. Pain continued to be well-managed when using her brace, though symptoms persisted with unbraced activity. The patient is aware that if symptoms persist or worsen , she may request a new referral to resume occupational therapy when she is able to continue services. Discharge is appropriate at this time due to non- attendance and financial constraints rather than achievement of therapeutic goals. - Plan Therapy Discharge to Home Exercise Program,Discharge from Recommendations Occupational Therapy Amount of Therapy No Further Therapy Recommended Frequency of No Further Therapy Treatment
== END 2025-04-27 13:06 | disposition home or self-care (01) ==
LOC: OT 09:45
PROVIDERS: Family Provider Student in an Organized Health Care Education/Training Program; PCP Student in an Organized Health Care Education/Training Program; Referring Provider Family Medicine; Visit Provider Family Medicine
DX: M25.531 Pain in right wrist (principal); M65.4 Radial styloid tenosynovitis [de Quervain]
CPT/HCPCS: 97165; 97530

== ENCOUNTER 2025-04-13 09:45 | Outpatient (RCR) | payer OTHER, SELFPAY ==
--- NOTE | 2025-03-30 08:52 | PT.OIE ---
Current Diagnoses Dorsalgia, unspecified (03/30/25) Past Medical History (Last Updated 05/03/24 @ 10:06 by Suzy Mtz, JUAN M) Foot fracture Post term Past Surgical History (Last Updated 05/03/24 @ 10:05 by Suzy Mtz RN) [place] teeth extracted Visit Care Team Role Provider Type Colette Early MD Family Provider Physician Primary Care Provider Specialty: [facility] Address: [address] [place] [id number] Email: [email or web address] Eliane Renteria MD Attending Provider Physician Referring Provider Specialty: [facility] Address: [address] [place] [address], [address] Email: [email or web address] Physical Therapy Initial Evaluation PT OP: Full Body Start: 03/30/25 08:11 Freq: Status: Active Protocol: Document 03/30/25 09:48 [facility] (Rec: 03/30/25 09:56 [facility] [id number]) Out-Patient Physical Therapy Visit Information Visit Information Visit Type Initial Evaluation Visit Start Time 09:45 Visit Stop Time 10:30 Visit Number 1 Evaluation Information Evaluation Date 03/30/25 Current Condition History of Current Condition Onset Date with latest , baby born [birth year]24 (baby Shelby) Current Complaints LBP moderate to severe intensity History of Current 35 year old mother of 4 with newest baby 3 months old Condition and chief complaints of LBP that is described as moderate to severe. All four babies were vaginal deliveries. Martha reports she feels her perineum is gapping and she is not as strong in her pelvic floor. She has been on a strong anti inflammatory med and its helping with back pain. She reports towards the end of first trimester she could hardly move she was in so much pain. She has had a episode since being that she felt her back go out and afterwards she felt she couldn't move. MRI has been taken and shows early/mild degenerative changes predominantly at the L5-S1 level. Martha reports she has had radiating pain down the right leg at times. Prior Treatments and MRI reveals L3-4 minor diffuse circumferential disc Tests bulge L4-5 mild disc desiccation and minor broad based posterior disc bulge. Minimal posterior annular tear. L5-S1 mild disc deciccation and mild diffuse disc height loss. Mild, broad-based posterior disc bulge with small right central annular tear Treatment Goals Patient/Caregiver Goals include decreasing pain, improving core strength Goals and improving pain free functional activities Patient Questionnaires Oswestry Low Back Index Oswestry Score 14 Oswestry Impairment 1 to 19% Impaired (Score 1-19) OP-PT Pain Assessment Location low back and sacral pain Pain Location 4 Details Pain Intensity 4 Scale Used Numeric (0 - 10) Description- Other pain increased with lifting objects off floor ex laundry baskets Pain Aggravating ADL's,Standing,Sitting,Walking Factors Manual Assessments Soft Tissue Assessment Soft Tissue Mobility right quadratus lumborum tightness and guarding Assessment Posture Evaluation Position Standing Evaluation View Lateral L-Spine Posture Increased Lordosis Hip Goniometric Range of Motion Hip Left Flexion w/Knee 100 Flexed Straight Leg Raise 50 Internal Rotation 10 R Hip ROM WFL No Flexion w/Knee 95 Flexed Straight Leg Raise 70 Internal Rotation 5 Comments limited ROM into hip flexion and hip IR Hip ROM Limitations Hip ROM Limitations Soft Tissue Tightness Comments right hip flexion and IR limited with tightness and muscle guarding Special Tests Lumbar Spine Special Tests ASLR test Comments + for decreased core strength Therapeutic Exercises Supine Exercises single knee to chest Reps/Minutes 10 reps Supine march with TA Reps/Minutes x 10 rep s ball squeeze with pelvic floor Reps/Minutes 5 sec hold and 5 sec relax Standing Exercises standing sidebends Reps/Minutes x 5 reps Comments right side tighter Physical Therapy Assessment Rehab Potential Rehabilitation Excellent Potential Evaluation Complexity Number of Personal 0 Factors/ Comorbidities Number of Body 1-2 Systems Impaired Clinical Stable Presentation at Evaluation Impairments Impairments Activity Tolerance,Functional Activities,Functional Mobility,Pain,Posture,ROM,Soft Tissue Mobility,Strength Goals 3 Impairment Martha lacks a HEP for core strengthening and posture as well as body mechanics training for home Alf Goal (LTG) Martha is independent with a postural and core strengthening program as well as demonstrating proper body mechanics for lifting LTG Duration 12 weeks 2 Impairment LBP rated 4/10 that is made worse with lifting activities such as full laundry baskets, sitting more than 1 hour and long standing durations Alf Goal (LTG) Martha reports a overall reduction in LBP and is able to use proper body mechanics for lifting at home LTG Duration 12 weeks 1 Impairment post core weakness Short Term Goal (STG Martha is able to facilitate her pelvic floor and ) transverse abdominal muscles for supine march exercises without low back extending into a lordosis STG Duration 4 weeks Glass Blower Goal (LTG) Martha presents with improved core strength and tests neg for ASLR test B LTG Duration 12 weeks Assessment Summary Assessment Martha is a 35 yo female 3 months with her 4th baby with chief complaints of LBP that worsened with this last . Pain limits ADL's especially lifting including lifting full laundry baskets. MRI does show early mild degenerative changes, predominantly at the L5-S1 level. With exam Martha stands in a increased lordotic posture. She reports she has always been extremely flexible. She is able to fully forward bend easily placing hands on floor without pain. Side bending left creates tightness on the right side and right Quadratus lumborum is tight and guarded. With hip ROM she has reduced range for hip flexion and IR on the right side. Left hip is tight and restricted for SLR and also tight for hip flexion and IR although not as restricted as the right side. Martha presents with post core weakness and decreased ability to facilitate both her pelvic floor as well as transverse abdominal muscles. Martha is a good candidate for PT working to increase core strength to stabilize her spine and improve hip ROM and strength Physical Therapy Plan Frequency and Duration Frequency of 1x/Week Treatment Duration of 12 treatment (weeks) Plan of Care Start 03/30/25 Date Plan of Care End 06/22/25 Date Next Visit Focus/Plan Next Note Type Treatment Note Next Visit Plan review exercises next visit, trial of TA in quadruped, work on hip flexion and IR hip range B, progress lower abdominal stabilization exercises sit-stand with hip hinge
--- NOTE | 2025-03-30 16:00 | PT.OPPOC ---
Physical, Occupational & Speech Therapy At [facility] Current Diagnoses Dorsalgia, unspecified (03/30/25) Visit Care Team Role Provider Type Colette Early MD Family Provider Physician Primary Care Provider Specialty: Family Practice Obstetrics Address: [facility] [place], [address] Email: [email or web address] Eliane Renteria MD Attending Provider Physician Referring Provider Specialty: Family Practice WORD PROCESSING MACHINE OPERATOR Address: [address] [place] [address], [id number] Email: [email or web address] Plan Of Care PT OP: Full Body Start: 03/30/25 08:11 Freq: Status: Active Protocol: Document 03/30/25 09:48 [facility] (Rec: 03/30/25 09:56 [facility] [id number]) Out-Patient Physical Therapy Visit Information Visit Information Visit Type Initial Evaluation Visit Start Time 09:45 Visit Stop Time 10:30 Visit Number 1 Evaluation Information Evaluation Date 03/30/25 Current Condition History of Current Condition Onset Date with latest , baby born December 23, 2026 (baby Shelby) Current Complaints LBP moderate to severe intensity History of Current 35 year old mother of 4 with newest baby 3 months old Condition and chief complaints of LBP that is described as moderate to severe. All four babies were vaginal deliveries. Martha reports she feels her perineum is gapping and she is not as strong in her pelvic floor. She has been on a strong anti inflammatory med and its helping with back pain. She reports towards the end of first trimester she could hardly move she was in so much pain. She has had a episode since being that she felt her back go out and afterwards she felt she couldn't move. MRI has been taken and shows early/mild degenerative changes predominantly at the L5-S1 level. Martha reports she has had radiating pain down the right leg at times. Prior Treatments and MRI reveals L3-4 minor diffuse circumferential disc Tests bulge L4-5 mild disc desiccation and minor broad based posterior disc bulge. Minimal posterior annular tear. L5-S1 mild disc desiccation and mild diffuse disc height loss. Mild, broad-based posterior disc bulge with small right central annular tear Treatment Goals Patient/Caregiver Goals include decreasing pain, improving core strength Goals and improving pain free functional activities Patient Questionnaires Oswestry Low Back Index Oswestry Score 14 Oswestry Impairment 1 to 19% Impaired (Score 1-19) OP-PT Pain Assessment Location low back and sacral pain Pain Location 4 Details Pain Intensity 4 Scale Used Numeric (0 - 10) Description- Other pain increased with lifting objects off floor ex laundry baskets Pain Aggravating ADL's,Standing,Sitting,Walking Factors Manual Assessments Soft Tissue Assessment Soft Tissue Mobility right quadratus lumborum tightness and guarding Assessment Posture Evaluation Position Standing Evaluation View Lateral L-Spine Posture Increased Lordosis Hip Goniometric Range of Motion Hip Measured in Degrees Left Flexion w/Knee 100 Flexed Straight Leg Raise 50 Internal Rotation 10 R Hip ROM WFL No Flexion w/Knee 95 Flexed Straight Leg Raise 70 Internal Rotation 5 Comments limited ROM into hip flexion and hip IR Hip ROM Limitations Hip ROM Limitations Soft Tissue Tightness Comments right hip flexion and IR limited with tightness and muscle guarding Special Tests Lumbar Spine Special Tests ASLR test Comments + for decreased core strength Therapeutic Exercises Supine Exercises single knee to chest Reps/Minutes 10 reps Supine march with TA Reps/Minutes x 10 rep s ball squeeze with pelvic floor Reps/Minutes 5 sec hold and 5 sec relax Standing Exercises standing sidebends Reps/Minutes x 5 reps Comments right side tighter Physical Therapy Assessment Rehab Potential Rehabilitation Excellent Potential Evaluation Complexity Number of Personal 0 Factors/ Comorbidities Number of Body 1-2 Systems Impaired Clinical Stable Presentation at Evaluation Impairments Impairments Activity Tolerance,Functional Activities,Functional Mobility,Pain,Posture,ROM,Soft Tissue Mobility,Strength Goals 3 Impairment Martha lacks a HEP for core strengthening and posture as well as body mechanics training for home Chain Saw Operator Goal (LTG) Martha is independent with a postural and core strengthening program as well as demonstrating proper body mechanics for lifting LTG Duration 12 weeks 2 Impairment LBP rated 4/10 that is made worse with lifting activities such as full laundry baskets, sitting more than 1 hour and long standing durations Chain Saw Operator Goal (LTG) Martha reports a overall reduction in LBP and is able to use proper body mechanics for lifting at home LTG Duration 12 weeks 1 Impairment post core weakness Short Term Goal (STG Martha is able to facilitate her pelvic floor and ) transverse abdominal muscles for supine march exercises without low back extending into a lordosis STG Duration 4 weeks Chain Saw Operator Goal (LTG) Martha presents with improved core strength and tests neg for ASLR test B LTG Duration 12 weeks Assessment Summary Assessment Martha is a 35 yo female 3 months with her 4th baby with chief complaints of LBP that worsened with this last . Pain limits ADL's especially lifting including lifting full laundry baskets. MRI does show early mild degenerative changes, predominantly at the L5-S1 level. With exam Martha stands in a increased lordotic posture. She reports she has always been extremely flexible. She is able to fully forward bend easily placing hands on floor without pain. Side bending left creates tightness on the right side and right Quadratus lumborum is tight and guarded. With hip ROM she has reduced range for hip flexion and IR on the right side. Left hip is tight and restricted for SLR and also tight for hip flexion and IR although not as restricted as the right side. Martha presents with post core weakness and decreased ability to facilitate both her pelvic floor as well as transverse abdominal muscles. Martha is a good candidate for PT working to increase core strength to stabilize her spine and improve hip ROM and strength Physical Therapy Plan Frequency and Duration Frequency of 1x/Week Treatment Duration of 12 treatment (weeks) Plan of Care Start 03/30/25 Date Plan of Care End 06/22/25 Date Next Visit Focus/Plan Next Note Type Treatment Note Next Visit Plan review exercises next visit, trial of TA in quadruped, work on hip flexion and IR hip range B, progress lower abdominal stabilization exercises sit-stand with hip hinge Plan of Care Dates Plan of Care Start Date 03/30/25 Plan of Care End Date 06/22/25 Electronically Signed by: Annabelle Rucker, PT 04/04/25 0852 If you are in agreement with this Plan of Care, please return a signed and dated copy. I have reviewed this Plan of Care and certify that the skilled therapy services above are required to meet the patient?s needs. Physician Signature Date Printed Name and Credentials Clinical Instructor Signature Printed Name and Credentials
--- NOTE | 2025-04-13 17:00 | PT.OTN ---
Current Diagnoses Stiffness of unspecified hip, not elsewhere classified (04/13/25) Dorsalgia, unspecified (04/13/25) Weakness (04/13/25) Physical Therapy Treatment Note PT OP: Full Body Start: 03/30/25 08:11 Freq: Status: Active Protocol: Document 04/13/25 09:51 [facility] (Rec: 04/13/25 10:42 [facility] [id number]) Out-Patient Physical Therapy Visit Information Visit Information Visit Type Treatment Note Visit Start Time 09:45 Visit Stop Time 10:30 Visit Number 2 OP-PT Subjective Patient Comments Patient Comments pt notes she has been trying to find her TA but its hard to feel her back is sore today dull pain Therapeutic Exercises Supine Exercises lower abdominal progression level 3 Supine Exercise Name march up up the slide one leg out along table, repeat opp side Reps/Minutes x 10 reps Comments pt did well with stabilizing her spine with this supine level 1 b Supine Exercise Name cues to march up up down down with LA progression level 1b Reps/Minutes 10 reps hamstring stretch Reps/Minutes single leg ankle pump x 20 single knee to chest Reps/Minutes 10 reps Standing Exercises standing pelvic tilts against the wall Reps/Minutes 10 reps Other Exercises legs up the wall stretch Reps/Minutes both legs up the wall william pose Reps/Minutes hands straight in front and then side to side holding at least 30 sec each cat cow Reps/Minutes x 10 reps Self-Care/Home Management Treatment Education Patient Education Home Exercise Program,Pain Management Other Education pt was given a flow sheet with exercises written out for HEP and given handouts of her pictures for HEP, ice was recommended for LBP Physical Therapy Assessment Goals 3 Impairment Martha lacks a HEP for core strengthening and posture as well as body mechanics training for home Plaster Patternmaker Goal (LTG) Martha is independent with a postural and core strengthening program as well as demonstrating proper body mechanics for lifting LTG Duration 12 weeks 2 Impairment LBP rated 4/10 that is made worse with lifting activities such as full laundry baskets, sitting more than 1 hour and long standing durations Plaster Patternmaker Goal (LTG) Martha reports a overall reduction in LBP and is able to use proper body mechanics for lifting at home LTG Duration 12 weeks 1 Impairment post core weakness Short Term Goal (STG Martha is able to facilitate her pelvic floor and ) transverse abdominal muscles for supine march exercises without low back extending into a lordosis STG Duration 4 weeks Halfway Goal (LTG) Martha presents with improved core strength and tests neg for ASLR test B LTG Duration 12 weeks Assessment Summary Assessment Martha did well with standing pelvic tilts against the wall and I was able to increase her stabilization today to include LA progression today. We stared work in all 4's and her recruitment of the TA is better today than it was last visit. She would benefit from adding in lateral hip stability next visit. It should be noted that Martha is extremely hypermoble. I was able to get her to feel a stretch in the QL region with william pose and walking hands to the side. She did like this better than the standing sidebends we tried at our initial visit Physical Therapy Plan Frequency and Duration Frequency of 1x/Week Treatment Duration of 12 treatment (weeks) Plan of Care Start 03/30/25 Date Plan of Care End 06/22/25 Date Next Visit Focus/Plan Next Note Type Treatment Note Next Visit Plan review exercises added at today's visit, work toward sit-stand with hip hinge and add in clam shells to HEP
--- NOTE | 2025-06-01 08:27 | PT.OPDS ---
Current Diagnoses Stiffness of unspecified hip, not elsewhere classified (04/13/25) Dorsalgia, unspecified (04/13/25) Weakness (04/13/25) Visit Care Team Role Provider Type Colette Early MD Family Provider Physician Primary Care Provider Specialty: Family Practice Obstetrics Address: [address] [place], [address] Email: [email or web address] Eliane Renteria MD Attending Provider Physician Referring Provider Specialty: Family Practice REFRIGERATOR CAR ICER Address: [address] [place], [address] Email: [email or web address] Visit Number Visit Number 2 Discharge Summary PT OP: Full Body Start: 03/30/25 08:11 Freq: Status: Active Protocol: Document 06/01/25 08:25 [facility] (Rec: 06/01/25 08:27 [facility] [id number]) Physical Therapy Assessment Goals 3 Impairment Martha lacks a HEP for core strengthening and posture as well as body mechanics training for home Pin Drafting Machine Operator Goal (LTG) Martha is independent with a postural and core strengthening program as well as demonstrating proper body mechanics for lifting LTG Duration 12 weeks 2 Impairment LBP rated 4/10 that is made worse with lifting activities such as full laundry baskets, sitting more than 1 hour and long standing durations Mcfp Goal (LTG) Martha reports a overall reduction in LBP and is able to use proper body mechanics for lifting at home LTG Duration 12 weeks 1 Impairment post core weakness Short Term Goal (STG Martha is able to facilitate her pelvic floor and ) transverse abdominal muscles for supine march exercises without low back extending into a lordosis STG Duration 4 weeks Mcfp Goal (LTG) Martha presents with improved core strength and tests neg for ASLR test B LTG Duration 12 weeks Assessment Summary Assessment Martha has been seen x 2 visits in PT and was given a back stabilization program. She canceled her last remaining PT visit and has not been seen since 04/13/25 . At this point she will be discharged from PT. I would be happy to re-establish care with her should she want to try PT at another time. Physical Therapy Plan Discharge Physical Therapy Discharge Reasons No Longer Attending PT
== END 2025-06-01 08:58 | disposition home or self-care (01) ==
LOC: PHYS 09:45
PROVIDERS: Family Provider Student in an Organized Health Care Education/Training Program; PCP Student in an Organized Health Care Education/Training Program; Referring Provider Family Medicine; Visit Provider Family Medicine
DX: M54.9 Dorsalgia, unspecified (principal); M25.659 Stiffness of unspecified hip, not elsewhere classified; R53.1 Weakness
CPT/HCPCS: 97110; 97161; 97535